=== PATIENT | female | born 1995 | race Caucasian/White ===

== ENCOUNTER 2017-07-05 15:22 | Emergency (ER) | payer BC, OTHER ==
[~2017-07-05 15:22] MED LIST: LISD50 PO; [UNRECOGNIZED DRUG - REMARK]
[2017-07-05] MEDS ORDERED: IOHEXOL 350 MG/ML 10 ML VIAL (for RAD DIAG) IVCONTRAST ONE (15:23)
[2017-07-05 15:35] VITALS: BP 150/79; PULSE 113; RESP 22; TEMP 98.5; O2SAT 100
--- NOTE | 2017-07-05 15:59 | RADRPT ---
EXAM DATE/TIME: 07/05/2017 15:47 [facility] COMPARISON: No previous studies available for comparison. INDICATIONS : Left side chest pain. Short of breath. MEDICAL HISTORY : None. SURGICAL HISTORY : None. ENCOUNTER: Initial ACUITY: 2 days PAIN SCORE: 8/10 LOCATION: Left upper chest FINDINGS: PA and lateral views of the chest demonstrate the lungs to be symmetrically aerated without evidence of mass, infiltrate or effusion. The cardiomediastinal contours are unremarkable. Osseous structure s are intact. CONCLUSION: 1. No acute cardiopulmonary findings. Quintin Raphael MD on July 05, 2017 at 15:57 Board Certified Radiologist. This report was verified electronically.
[2017-07-05 16:20] LABS: AMORPHOUS SEDIMENT, URINE OCC; BILIRUBIN, URINE NEG (NEG); BLOOD, URINE NEG (NEG); GLUCOSE,URINE NEG (NEG); KETONE, URINE NEG (NEG); MUCUS URINE FEW /lpf (OCC); NITRITE,URINE NEG (NEG); PH, URINE 7.5 (5.0-8.5); SQUAMOUS EPITHELIAL CELL URINE 19 /hpf (0-5); URINE COLOR YELLOW (YELLW/STRAW); URINE LEUKOCYTE ESTERASE SMALL (NEG)
[2017-07-05] MEDS ORDERED: LISD30 PO (16:22)
[2017-07-05] MEDS ORDERED: KETOROLAC TROMETHAMINE 30 MG/ML (IVP) VIAL IV PUSH ONE (16:30)
[2017-07-05 16:37] LABS: AUTOMATED NEUTROPHIL # 4.8 TH/MM3 (1.8-7.7); BASOPHIL % 0.6 % (0.0-2.0); EOSINOPHIL # 0.1 TH/MM3 (0-0.4); EOSINOPHIL % 1.1 % (0.0-4.0); HEMATOCRIT 36.8 % (35.0-46.0); HEMOGLOBIN 12.7 GM/DL (11.6-15.3); LYMPH % 22.5 % (9.0-44.0); LYMPHOCYTE # 1.7 TH/MM3 (1.0-4.8); MEAN CELL VOLUME 88.8 FL (80.0-100.0); MEAN CORPUSCULAR HEMOGLOBIN 30.7 PG (27.0-34.0); MEAN CORPUSCULAR HGB CONC 34.6 % (32.0-36.0); MEAN PLATELET VOLUME 7.4 FL (7.0-11.0); MONO % 10.4 % (0.0-8.0); MONOCYTE # 0.8 TH/MM3 (0-0.9); NEUT % 65.4 % (16.0-70.0); PLATELET COUNT 246 TH/MM3 (150-450); RED BLOOD COUNT 4.14 MIL/MM3 (4.00-5.30); WHITE BLOOD COUNT 7.3 TH/MM3 (4.0-11.0)
[2017-07-05 16:54] LABS: D-DIMER 0.54 MG/L FEU (0.00-0.50)
[2017-07-05 17:04] LABS: ALBUMIN 3.6 GM/DL (3.4-5.0); AST (GOT) 12 U/L (15-37); BICARBONATE 24.6 MEQ/L (21.0-32.0); BLOOD UREA NITROGEN 12 MG/DL (7-18); CALCIUM 8.4 MG/DL (8.5-10.1); CHLORIDE 107 MEQ/L (98-107); CREATININE 0.73 MG/DL (0.50-1.00); GLOMERULAR FILTRATION RATE 98 ML/MIN (>89); GLUCOSE,RANDOM 88 MG/DL (74-106); MAGNESIUM 1.9 MG/DL (1.5-2.5); SODIUM (NA) 139 MEQ/L (136-145)
[2017-07-05 17:06] LABS: ALT (GPT) 20 U/L (10-53)
[2017-07-05 17:10] LABS: ALKALINE PHOSPHATASE 73 U/L (45-117); TOTAL BILIRUBIN ADULT 0.3 MG/DL (0.2-1.0); TOTAL PROTEIN 7.5 GM/DL (6.4-8.2); TROPONIN I LESS THAN 0.02 NG/ML (0.02-0.05)
--- NOTE | 2017-07-05 17:57 | RADRPT ---
EXAM DATE/TIME: 07/05/2017 17:39 [facility] COMPARISON: No previous studies available for comparison. INDICATIONS : Patient complains of chest, back pain and left shoulder pain. IV CONTRAST: 55 cc Omnipaque 350 (iohexol) IV RADIATION DOSE: 5.78 CTDIvol (mGy) MEDICAL HISTORY : Ulcers. Diabetes mellitus type 1. SURGICAL HISTORY : None. ENCOUNTER: Initial ACUITY: 1 day PAIN SCALE: 5/10 LOCATION: chest TECHNIQUE: Volumetric scanning of the chest was performed using a pulmonary embolism protocol MIP images were re constructed. Using automated exposure control and adjustment of the mA and/or kV according to patien t size, radiation dose was kept as low as reasonably achievable to obtain optimal diagnostic quality images. DICOM format image data is available electronically for review and comparison. Follow-up recommendations for detected pulmonary nodules are based at a minimum on nodule size and pa tient risk factors according to Fleischner Society Guidelines. FINDINGS: PULMONARY ARTERIES: No filling defects are seen in the pulmonary arteries through the segmental level. LUNGS: There is no consolidation or pneumothorax . No concerning pulmonary nodule is visualized. PLEURAE: There is no pleural thickening or pleural effusion. MEDIASTINUM: There is good visualization of the great vessels of the middle mediastinum. No evidence of mediastin al or hilar adenopathy/mass. MUSCULOSKELETAL: Within normal limits for patient age. MISCELLANEOUS: The visualized upper abdominal organs demonstrate no acute abnormality. CONCLUSION: Normal examination. Dmitri Sifuentes Jr., MD on July 05, 2017 at 17:51 Board Certified Radiologist. This report was verified electronically.
[2017-07-05] MEDS ORDERED: MEDR4PAK PO (18:06)
[2017-07-05] MEDS ORDERED: KETO10 PO (18:06)
--- NOTE | 2017-07-05 18:13 | PD ---
HPI Chief Complaint: Medical Clearance Time Seen by Provider: 16:12 Travel History International Travel<30 days: No Contact w/Intl Traveler<30days: No Traveled to known affect area: No History of Present Illness HPI 22-year-old female with no significant past medical history other than ADHD, presents here today with complaints of pleuritic left-sided chest pain. Patient states it has been present for 2 days. She denies any fevers, chills. She denies any shortness of breath. She denies any history of coronary artery disease. There are no other complaints at time of my examination. Patient does not take control pills. She does not smoke. She is not . She has no history of previous DVTs. There is no previous trauma to her lower extremities. She denies any long car rides or plane rides. PFSH Past Medical History ADHD: Yes Anxiety: Yes Cancer: No Cardiovascular Problems: No Diminished Hearing: No Endocrine: No Gastrointestinal Disorders: Yes (crohns disease. IBS, rectal bleeding to hemorrhoids ) Genitourinary: No Hepatitis: No Hiatal Hernia: No Immune Disorder: No Musculoskeletal: No Neurologic: Yes (headaches) Psychiatric: No Reproductive: No Immunizations Current: Yes Sleep Apnea: Yes Thyroid Disease: No Ulcer: Yes Tetanus Vaccination: > 5 Years Influenza Vaccination: No ?: Not LMP: IUD : 1 Para: 1 Dilation and Curettage (D&C): Yes (2010) Past Surgical History Abdominal Surgery: Yes (colonoscopy, endoscopy, exp lap) AICD: No Body Medical Devices: abd piercing per pt unable to remove Gynecologic Surgery: Yes (D+C) Joint Replacement: No Pacemaker: No Other Surgery: Yes Social History Alcohol Use: No Tobacco Use: No Substance Use: No Allergies-Medications (Allergen,Severity, Reaction): Coded Allergies: No Known Allergies (Verified Allergy, Unknown, 07/05/17) Reported Meds & Prescriptions Reported Meds & Active Scripts Active Ketorolac (Ketorolac Tromethamine) 10 Mg Tab 10 Mg PO TID 4 Days Medrol Dosepak (Methylprednisolone) 4 Mg Dspk 4 Mg PO DIRECTED Per Pharmacist direction Reported Vyvanse (Lisdexamfetamine Dimesylate) 30 Mg Cap 30 Mg PO DAILY Review of Systems Except as stated in HPI: all other systems reviewed are Neg General / Constitutional: No: Fever, Chills HENT: No: Headaches, Lightheadedness Cardiovascular: Positive: Chest Pain or Discomfort (Pleuritic), No: Palpitations Respiratory: Positive: Pleuritic Pain, No: Cough, Shortness of Breath Gastrointestinal: No: Nausea, Vomiting, Abdominal Pain Genitourinary: No: Frequency, Dysuria Musculoskeletal: No: Weakness, Pain Skin: No Rash, No Itching, No Lesions Neurologic: No: Weakness, Dizziness, Headache, Change in Mentation Psychiatric: Positive: Other (History of ADHD), No: Substance Abuse Physical Exam Narrative GENERAL: Well-developed well-nourished female in no acute respiratory distress. SKIN: Focused skin assessment warm/dry. HEAD: Atraumatic. Normocephalic. EYES: Pupils equal and round. No scleral icterus. No injection or drainage. ENT: No nasal bleeding or discharge. Mucous membranes pink and moist. NECK: Trachea midline. Supple. CARDIOVASCULAR: Regular rate and rhythm. No murmur appreciated. RESPIRATORY: No accessory muscle use. Clear to auscultation. Breath sounds equal bilaterally. On examination since anterior chest wall, patient has point tenderness in her left anterior mid chest at C2 midclavicular level. No deformity. GASTROINTESTINAL: Abdomen soft, non-tender, nondistended. Hepatic and splenic margins not palpable. MUSCULOSKELETAL: No obvious deformities. No clubbing. No cyanosis. No edema. NEUROLOGICAL: Awake and alert. No obvious cranial nerve deficits. Motor grossly within normal limits. Normal speech. PSYCHIATRIC: Appropriate mood and affect; insight and judgment normal. Data Data Last Documented VS Vital Signs Date Time Temp Pulse Resp B/P (MAP) Pulse Ox O2 Delivery O2 Flow Rate FiO2 07/05/17 15:35 98.5 113 22 150/79 (102) 100 Orders Orders Complete Blood Count With Diff (07/05/17 15:37) Comprehensive Metabolic Panel (07/05/17 15:37) D-Dimer (07/05/17 15:37) Act Partial Throm Time (Ptt) (07/05/17 15:37) Prothrombin Time / Inr (Pt) (07/05/17 15:37) Magnesium (Mg) (07/05/17 15:37) Ckmb (Isoenzyme) Profile (07/05/17 15:37) Troponin I (07/05/17 15:37) Urinalysis - C+S If Indicated (07/05/17 15:37) Electrocardiogram (07/05/17 15:37) Chest, Pa & Lat (07/05/17 15:37) Ed Urine Pregnancytest Poc (07/05/17 15:37) Ketorolac Inj (Toradol Inj) (07/05/17 16:30) Ct Pulmonary Angiogram (07/05/17 17:22) Iohexol 350 Inj (Omnipaque 350 Inj) (07/05/17 15:23) Labs Laboratory Tests Test 07/05/17 16:01 07/05/17 16:20 Urine Color YELLOW Urine Turbidity CLOUDY Urine pH 7.5 Urine Specific [place] 1.018 Urine Protein NEG mg/dL Urine Glucose (UA) NEG mg/dL Urine Ketones NEG mg/dL Urine Occult Blood NEG Urine Nitrite NEG Urine Bilirubin NEG Urine Urobilinogen LESS THAN 2.0 MG/DL Urine Leukocyte Esterase SMALL Urine WBC 7 /hpf Urine Squamous Epithelial Cells 19 /hpf Urine Amorphous Sediment OCC Urine Mucus FEW /lpf Microscopic Urinalysis Comment CULT NOT INDICATED White Blood Count 7.3 TH/MM3 Red Blood Count 4.14 MIL/MM3 Hemoglobin 12.7 GM/DL Hematocrit 36.8 % Mean Corpuscular Volume 88.8 FL Mean Corpuscular Hemoglobin 30.7 PG Mean Corpuscular Hemoglobin Concent 34.6 % Red Cell Distribution Width 13.0 % Platelet Count 246 TH/MM3 Mean Platelet Volume 7.4 FL Neutrophils (%) (Auto) 65.4 % Lymphocytes (%) (Auto) 22.5 % Monocytes (%) (Auto) 10.4 % Eosinophils (%) (Auto) 1.1 % Basophils (%) (Auto) 0.6 % Neutrophils # (Auto) 4.8 TH/MM3 Lymphocytes # (Auto) 1.7 TH/MM3 Monocytes # (Auto) 0.8 TH/MM3 Eosinophils # (Auto) 0.1 TH/MM3 Basophils # (Auto) 0.0 TH/MM3 CBC Comment DIFF FINAL Differential Comment Prothrombin Time 10.0 SEC Prothromb Time International Ratio 1.0 RATIO Activated Partial Thromboplast Time 22.7 SEC D-Dimer Quantitative (PE/DVT) 0.54 MG/L FEU Blood Urea Nitrogen 12 MG/DL Creatinine 0.73 MG/DL Random Glucose 88 MG/DL Total Protein 7.5 GM/DL Albumin 3.6 GM/DL Calcium Level 8.4 MG/DL Magnesium Level 1.9 MG/DL Alkaline Phosphatase 73 U/L Aspartate Amino Transf (AST/SGOT) 12 U/L Alanine Aminotransferase (ALT/SGPT) 20 U/L Total Bilirubin 0.3 MG/DL Sodium Level 139 MEQ/L Potassium Level 3.8 MEQ/L Chloride Level 107 MEQ/L Carbon Dioxide Level 24.6 MEQ/L Anion Gap 7 MEQ/L Estimat Glomerular Filtration Rate 98 ML/MIN Total Creatine Kinase 78 U/L Troponin I LESS THAN 0.02 NG/ML MDM Medical Decision Making Medical Screen Exam Complete: Yes Emergency Medical Condition: Yes Differential Diagnosis ACS versus pulmonary embolus versus pleurisy versus ASCUS skeletal pain. Narrative Course 22-year-old female presents with left-sided chest pain. Patient has reproducible pain as well as pleuritic pain. EKG and cardiac enzymes are within normal limits. D-dimer was positive at 0.54. CTA chest was ordered to rule out pulmonary embolus which shows no evidence of acute findings. The patient has been given 30 mg of IV Toradol. She states that it helped a little bit however she still having some discomfort. I believe this is likely musculoskeletal in etiology. She will be given a prescription for Toradol 10 mg 3 times daily for 4 days. She also be given a prescription for Medrol Dosepak. She will be given Diagnosis Primary Impression: Atypical chest pain Additional Instructions: Moist heat anterior chest 2-3 times daily. Avoid heavy lifting. Return if feeling worse. Med/Other Pt SpecificInfo: Prescription(s) given Scripts Hydrocodone-Acetaminophen (Kenvir) 5 Mg-325 Mg Tab 1 TAB PO Q6H Y for PAIN, #10 TAB 0 Refills Prov: Pancho Keller MD 07/05/17 Ketorolac (Ketorolac) 10 Mg Tab 10 MG PO TID for Pain Management for 4 Days, TAB 0 Refills Prov: Pancho Keller MD 07/05/17 Methylprednisolone Dosepak (Medrol Dosepak) 4 Mg Dspk 4 MG PO DIRECTED, #1 DSPK 0 Refills Per Pharmacist direction Prov: Pancho Keller MD 07/05/17 Disposition: 01 DISCHARGE HOME Condition: Stable Pancho Keller MD Jul 05, 2017 18:13
[2017-07-05] MEDS ORDERED: NORC5TAB PO (19:01)
--- NOTE | 2017-07-06 21:34 | EKG ---
Date Performed: 07/05/2017 Time Performed: 16:30:21 PTAGE: 22 years EKG: Sinus rhythm POSSIBLE RIGHT VENTRICULAR CONDUCTION DELAY BORDERLINE ECG PREVIOUS TRACING : 03/16/2010 10.54 No significant change from previous tracing noted. DOCTOR: Jhonatan Tafoya Interpretating Date/Time 07/06/2017 21:32:45
== END 2017-07-05 19:15 | disposition home or self-care (01) ==
LOC: NEPC 15:22
DX: R07.89 Other chest pain (principal); R94.31 Abnormal electrocardiogram [ECG] [EKG]; F90.9 Attention-deficit hyperactivity disorder, unspecified type; F41.9 Anxiety disorder, unspecified; K58.9 Irritable bowel syndrome, unspecified; R51 Headache
CPT/HCPCS: 71046; 71275; 80053; 81001; 82550; 83735; 84484; 84703; 85025; 85379; 85610; 85730; 93005; 96374; 99285; J1885; Q9967